=== PATIENT | female | born 1945 | race Caucasian/White ===

== ENCOUNTER 2018-12-26 19:47 | Inpatient (IN) | payer OTHER ==
[~2018-12-26] VITALS: Ht 165.1 cm; Wt 85.7 kg
[2018-12-26 19:47] VITALS: BP 162/40
[~2018-12-26 19:47] MED LIST: ALBU3SOL83 IH; AMLO2.5T PO; ATEN50TA8 PO; BACO TP; BISA-218 RC; D50SYR IVP; DOCU-299 PO; FER325 PO; GLIP10TA3 PO; GLUC-805 FS; HUMSLIDE SUBQ; LACT10CA1 PO; LEVO750T2 PO; LOSA25TA43 PO; METF1000 PO; NORC10 PO; ORE25 PO; SENN-74 PO; TRAZ-343 PO
[2018-12-26] MEDS ORDERED: ATI.5 PO (20:13)
[2018-12-26] MEDS ORDERED: DEXTROSE 50% 50 ML SYR IVP ONE (20:15)
[2018-12-26 21:00] LABS: BASOPHILS # (AUTO) 0.1 K/uL (0.00-0.22); BASOPHILS % (AUTO) 0.4 % (0.0-2.0); EOSINOPHILS # (AUTO) 0.3 K/uL (0-0.4); EOSINOPHILS % (AUTO) 2.3 % (0.0-4.0); HEMOGLOBIN 10.3 g/dL (12.0-16.0); LYMPHOCYTES # (AUTO) 1.6 K/uL (2.5-16.5); MEAN CORPUSCULAR HEMOGLOBIN 30 pg (27-31); MEAN CORPUSCULAR HGB CONC 32 g/dL (33-37); MEAN CORPUSCULAR VOLUME 92.9 fL (80-94); NEUTROPHILS # (AUTO) 11.4 K/uL (1.8-7.7); NEUTROPHILS % (AUTO) 79.3 % (42.2-75.2); PLATELET COUNT (AUTO) 361 K/uL (140-450); RED BLOOD CELL COUNT(AUTO) 3.44 MIL/uL (4.20-5.40); RED CELL DISTRIBUTION WIDTH 17.3 % (11.6-13.7); WHITE BLOOD COUNT (AUTO) 14.3 K/uL (4.8-10.8)
[2018-12-26 21:10] LABS: ANION GAP 7.6 (8-16); CARBON DIOXIDE 34.9 mmol/L (21-32); CREATININE 1.3 mg/dL (0.6-1.3); POTASSIUM 3.5 mmol/L (3.5-5.1)
[2018-12-26 21:15] LABS: CHOL/HDL RATIO 2.5 (1-4.5)
[2018-12-26 21:17] LABS: ALBUMIN 2.9 g/dL (3.4-5.0); TOTAL BILIRUBIN 2.1 mg/dL (0.0-1.0)
[2018-12-26] MEDS ORDERED: FAMOTIDINE 20 MG/2 ML VIAL IV PRN (22:15)
[2018-12-26] MEDS ORDERED: DOCUSATE SODIUM 100 MG GELCAP PO PRN (22:15)
[2018-12-26] MEDS ORDERED: ACETAMINOPHEN 325 MG TAB PO PRN (22:15)
[2018-12-26] MEDS ORDERED: ONDANSETRON 4 MG/2 ML VIAL IM/IVP PRN (22:15)
[2018-12-26] MEDS ORDERED: GLUCAGON 1 MG VIAL IVP PRN (22:25)
[2018-12-26] MEDS ORDERED: DEXTROSE 50% 50 ML SYR IVP PRN (22:25)
[2018-12-26 22:50] LABS: PROTHROMBIN TIME 9.5 secs (10.8-13.4)
[2018-12-26 22:56] LABS: AMYLASE 92 U/L (25-115); FREE T4 (FREE THYROXINE) 1.35 ng/dL (0.76-1.46); LIPASE 224 U/L (73-393); MAGNESIUM 1.4 mg/dL (1.8-2.4); PHOSPHORUS 3.3 mg/dL (2.5-4.9); THYROID STIMULATING HORMONE 3.58 uIU/mL (0.34-3.74)
[2018-12-26] MEDS ORDERED: MAG SULF 2000 MG/WATER PREMIX 50 ML IV SCH (23:55)
[2018-12-27] MEDS ORDERED: ALBUTEROL SULFATE/IPRATROPIU 3 ML SOL IH PRN (00:10)
[2018-12-27] MEDS ORDERED: LOSA25TA43 PO (00:14)
[2018-12-27] MEDS ORDERED: AMLO2.5T PO (00:14)
[2018-12-27] MEDS ORDERED: LORazepam 0.5 MG TAB PO SCH (00:15)
[2018-12-27] MEDS ORDERED: BISACODYL 10 MG RC PRN (00:15)
[2018-12-27] MEDS: DEXT 5% / NACL 0.9% 500 ML IV SCH ×3 (00:16→13:47)
[2018-12-27] MEDS ORDERED: cefTRIAXone 1,000 MG VIAL ONE (02:34)
[2018-12-27 03:50] VITALS: BP 110/60
[2018-12-27] MEDS: BLOOD GLUCOSE MONITORING 1 DEV DEV FS SCH ×6 (04:00→20:00)
[2018-12-27] MEDS ORDERED: MEDICATION REC. PHARMACY CONS. 1 EA MISC MC PRN (04:35)
[2018-12-27] MEDS ORDERED: HYDROcodone/APAP 10/325 MG 1 TAB TAB PO SCH (06:00)
[2018-12-27] MEDS ORDERED: ALBUTEROL SULFATE/IPRATROPIU 3 ML SOL IH SCH (06:00)
[2018-12-27 06:40] LABS: BASOPHILS # (AUTO) 0.1 K/uL (0.00-0.22); BASOPHILS % (AUTO) 0.7 % (0.0-2.0); EOSINOPHILS # (AUTO) 0.3 K/uL (0-0.4); HEMATOCRIT 29.3 % (36-48); HEMOGLOBIN 9.2 g/dL (12.0-16.0); LYMPHOCYTES # (AUTO) 1.2 K/uL (2.5-16.5); LYMPHOCYTES % (AUTO) 10.1 % (20.5-51.1); MEAN CORPUSCULAR HEMOGLOBIN 30 pg (27-31); MEAN CORPUSCULAR HGB CONC 31 g/dL (33-37); MEAN CORPUSCULAR VOLUME 96.1 fL (80-94); MONOCYTES % (AUTO) 8.8 % (1.7-9.3); NEUTROPHILS % (AUTO) 77.4 % (42.2-75.2); PLATELET COUNT (AUTO) 243 K/uL (140-450); RED BLOOD CELL COUNT(AUTO) 3.05 MIL/uL (4.20-5.40); RED CELL DISTRIBUTION WIDTH 18.1 % (11.6-13.7); WHITE BLOOD COUNT (AUTO) 11.6 K/uL (4.8-10.8)
[2018-12-27 07:05] LABS: ANION GAP 8.8 (8-16); CARBON DIOXIDE 27.9 mmol/L (21-32); CREATININE 1.1 mg/dL (0.6-1.3); MAGNESIUM 1.5 mg/dL (1.8-2.4); PHOSPHORUS 3.3 mg/dL (2.5-4.9); POTASSIUM 3.7 mmol/L (3.5-5.1)
[2018-12-27] MEDS ORDERED: BLOOD GLUCOSE MONITORING 1 DEV DEV FS SCH (07:30)
[2018-12-27 08:00] VITALS: BP 140/31
[2018-12-27] MEDS ORDERED: BISACODYL 10 MG SUPP RC PRN (08:15)
[2018-12-27] MEDS: LACTOBACILLUS RHAMNOSUS GG 1 EACH CAP PO SCH (08:46)
[2018-12-27] MEDS: FERROUS SULFATE 325 MG TABEC PO SCH ×2 (08:46→17:24)
[2018-12-27] MEDS: SENNA 8.6 MG TAB PO SCH (08:47)
[2018-12-27] MEDS ORDERED: LOSARTAN POTASSIUM PO SCH (09:00)
[2018-12-27] MEDS: amLODIPine 5 MG TAB PO SCH (09:00)
[2018-12-27] MEDS ORDERED: traZODone 50 MG TAB PO SCH (09:00)
[2018-12-27] MEDS ORDERED: ATENOLOL 50 MG TAB PO SCH (09:00)
[2018-12-27] MEDS ORDERED: NON-FORMULARY ITEM (Lactobacillus Rhamnosus GG (Culturelle) 10 Billion) PO SCH (09:00)
[2018-12-27] MEDS: LOSARTAN 25 MG TAB PO SCH (09:19)
[2018-12-27] MEDS: HYDROCHLOROTHIAZIDE 25 MG TAB PO SCH (09:20)
[2018-12-27] MEDS: MAG SULF 2000 MG/WATER PREMIX 50 ML IV SCH ×2 (11:51→13:50)
[2018-12-27 12:00] VITALS: BP 142/39
[2018-12-27 16:00] VITALS: BP 151/37
[2018-12-27] MEDS: HYDROcodone/APAP 7.5/325 MG 1 TAB PO PRN (16:45)
[2018-12-27 17:31] LABS: BILIRUBIN,URINE NEGATIVE (NEGATIVE); BLOOD, URINE NEGATIVE (NEGATIVE); COLOR,URINE YELLOW (YELLOW); LEUKOCYTE ESTERASE ,URINE 1+ (NEGATIVE); NITRITE, URINE NEGATIVE (NEGATIVE); PH,URINE 5.5 (5.0-9.0); UGLUCOSE NEGATIVE (NEGATIVE)
[2018-12-27 17:32] LABS: APPEARANCE,URINE CLOUDY (CLEAR)
[2018-12-27 17:37] LABS: BARBITURATE, URINE NEG. ng/ml (NEG <=200); BENZODIAZEPINE, URINE NEG. ng/mL (NEG <=200); CANNABINOID, URINE POS. ng/mL (NEG <=50); COCAINE, URINE NEG. ng/mL (NEG <=300); OPIATE, URINE POS. ng/mL (NEG <=2000); PHENCYCLIDINE SCREEN,URINE NEG. ng/mL (NEG <=25)
[2018-12-27 17:43] LABS: RBC,URINE NONE SEEN /HPF (0-5); YEAST,URINE Many /HPF (None Seen)
[2018-12-27 20:00] VITALS: BP 155/43
[2018-12-27] MEDS: ALBUTEROL SULFATE/IPRATROPIU 3 ML SOL IH SCH (20:43)
[2018-12-27] MEDS: traZODone 50 MG TAB PO SCH (21:35)
[2018-12-27] MEDS: INSULIN LISPRO SLIDING SCALE 100 UNITS/ML VIAL SUBQ PRN (22:41)
[2018-12-27] MEDS ORDERED: DEXT 5% / NACL 0.9% 1,000 ML IV SCH (23:20)
[2018-12-28] VITALS: BP 148/51
[2018-12-28] MEDS: LORazepam 0.5 MG TAB PO PRN (00:40)
[2018-12-28 04:00] VITALS: BP 154/45
[2018-12-28] MEDS: INSULIN LISPRO SLIDING SCALE 100 UNITS/ML VIAL SUBQ PRN ×3 (04:56→16:12)
[2018-12-28] MEDS ORDERED: BLOOD GLUCOSE MONITORING 1 DEV DEV FS SCH (05:00)
[2018-12-28 06:41] LABS: BASOPHILS # (AUTO) 0.1 K/uL (0.00-0.22); BASOPHILS % (AUTO) 0.5 % (0.0-2.0); EOSINOPHILS # (AUTO) 0.2 K/uL (0-0.4); EOSINOPHILS % (AUTO) 2.4 % (0.0-4.0); HEMATOCRIT 27.1 % (36-48); HEMOGLOBIN 8.8 g/dL (12.0-16.0); LYMPHOCYTES # (AUTO) 1.3 K/uL (2.5-16.5); LYMPHOCYTES % (AUTO) 13.4 % (20.5-51.1); MEAN CORPUSCULAR HEMOGLOBIN 31 pg (27-31); MEAN CORPUSCULAR HGB CONC 33 g/dL (33-37); MEAN CORPUSCULAR VOLUME 94.5 fL (80-94); MONOCYTES # (AUTO) 0.8 K/uL (0.8-1.0); MONOCYTES % (AUTO) 8.8 % (1.7-9.3); NEUTROPHILS # (AUTO) 7.1 K/uL (1.8-7.7); NEUTROPHILS % (AUTO) 74.9 % (42.2-75.2); PLATELET COUNT (AUTO) 276 K/uL (140-450); RED BLOOD CELL COUNT(AUTO) 2.86 MIL/uL (4.20-5.40); RED CELL DISTRIBUTION WIDTH 17.3 % (11.6-13.7); WHITE BLOOD COUNT (AUTO) 9.4 K/uL (4.8-10.8)
[2018-12-28 06:57] LABS: MAGNESIUM 1.8 mg/dL (1.8-2.4); PHOSPHORUS 2.6 mg/dL (2.5-4.9)
[2018-12-28 06:58] LABS: ANION GAP 7.6 (8-16); CARBON DIOXIDE 28.7 mmol/L (21-32); CHLORIDE 109 mmol/L (98-107); CREATININE 1.2 mg/dL (0.6-1.3); POTASSIUM 3.3 mmol/L (3.5-5.1); SODIUM SERUM 142 mmol/L (136-145); UREA NITROGEN, BLOOD 25 mg/dL (7-18)
[2018-12-28] MEDS: ALBUTEROL SULFATE/IPRATROPIU 3 ML SOL IH SCH ×3 (07:03→20:14)
[2018-12-28 07:12] LABS: GLUCOSE 764 mg/dL (74-106)
[2018-12-28] MEDS ORDERED: INSULIN NPH HUMAN ISOPHANE 100 UNIT/ML VIAL SUBQ ONE (07:50)
[2018-12-28 08:00] VITALS: BP 147/38
[2018-12-28] MEDS: BLOOD GLUCOSE MONITORING 1 DEV DEV FS SCH ×5 (08:20→23:45)
[2018-12-28] MEDS: NACL 0.9% 1,000 ML IV SCH (08:28)
[2018-12-28] MEDS: FERROUS SULFATE 325 MG TABEC PO SCH ×2 (08:29→16:15)
[2018-12-28] MEDS: amLODIPine 5 MG TAB PO SCH ×2 (08:30→08:40)
[2018-12-28] MEDS: HYDROCHLOROTHIAZIDE 25 MG TAB PO SCH ×2 (08:30→08:41)
[2018-12-28] MEDS ORDERED: POTASSIUM CHLORIDE 10 MEQ TABER PO SCH (08:30)
[2018-12-28] MEDS: SENNA 8.6 MG TAB PO SCH (08:30)
[2018-12-28] MEDS: LOSARTAN 25 MG TAB PO SCH (08:31)
[2018-12-28] MEDS: metFORMIN 850 MG TAB PO SCH ×2 (08:31→16:15)
[2018-12-28] MEDS: LACTOBACILLUS RHAMNOSUS GG 1 EACH CAP PO SCH (08:38)
[2018-12-28 08:41] LABS: ANION GAP 8.7 (8-16); CARBON DIOXIDE 30.3 mmol/L (21-32); CHLORIDE 102 mmol/L (98-107); CREATININE 1.2 mg/dL (0.6-1.3); GLUCOSE 240 mg/dL (74-106); SODIUM SERUM 137 mmol/L (136-145); UREA NITROGEN, BLOOD 28 mg/dL (7-18)
[2018-12-28] MEDS ORDERED: POTASSIUM CHLORIDE 20% 40 MEQ/15 ML UDC PO SCH (09:00)
[2018-12-28] MEDS: MORPHINE SULFATE 2 MG/ML SYR IVP PRN (11:41)
[2018-12-28 12:00] VITALS: BP 156/43
[2018-12-28 16:00] VITALS: BP 140/86
[2018-12-28 20:00] VITALS: BP 149/42
[2018-12-28] MEDS: traZODone 50 MG TAB PO SCH (21:20)
[2018-12-29] VITALS: BP 132/52
[2018-12-29] MEDS: NACL 0.9% 1,000 ML IV SCH ×2 (00:30→17:16)
[2018-12-29 04:00] VITALS: BP 158/51
[2018-12-29] MEDS: BLOOD GLUCOSE MONITORING 1 DEV DEV FS SCH ×5 (04:01→20:17)
[2018-12-29] MEDS: MORPHINE SULFATE 2 MG/ML SYR IVP PRN ×3 (04:05→17:15)
[2018-12-29] MEDS: ALBUTEROL SULFATE/IPRATROPIU 3 ML SOL IH SCH ×3 (06:38→19:30)
[2018-12-29 08:00] VITALS: BP 155/43
[2018-12-29 08:09] LABS: MAGNESIUM 1.8 mg/dL (1.8-2.4); PHOSPHORUS 2.7 mg/dL (2.5-4.9)
[2018-12-29 08:11] LABS: ANION GAP 11.6 (8-16); CARBON DIOXIDE 29.8 mmol/L (21-32); CHLORIDE 102 mmol/L (98-107); CREATININE 1.1 mg/dL (0.6-1.3); GLUCOSE 148 mg/dL (74-106); POTASSIUM 4.4 mmol/L (3.5-5.1); SODIUM SERUM 139 mmol/L (136-145); UREA NITROGEN, BLOOD 25 mg/dL (7-18)
[2018-12-29 08:39] LABS: HEMATOCRIT 29.7 % (36-48); HEMOGLOBIN 9.6 g/dL (12.0-16.0); MEAN CORPUSCULAR HEMOGLOBIN 30 pg (27-31); MEAN CORPUSCULAR HGB CONC 32 g/dL (33-37); MEAN CORPUSCULAR VOLUME 93.6 fL (80-94); PLATELET COUNT (AUTO) 302 K/uL (140-450); RED BLOOD CELL COUNT(AUTO) 3.17 MIL/uL (4.20-5.40); RED CELL DISTRIBUTION WIDTH 17.8 % (11.6-13.7); WHITE BLOOD COUNT (AUTO) 12.8 K/uL (4.8-10.8)
[2018-12-29] MEDS: metFORMIN 850 MG TAB PO SCH (08:40)
[2018-12-29] MEDS: HYDROCHLOROTHIAZIDE 25 MG TAB PO SCH (08:40)
[2018-12-29] MEDS: LACTOBACILLUS RHAMNOSUS GG 1 EACH CAP PO SCH (08:42)
[2018-12-29] MEDS: LOSARTAN 25 MG TAB PO SCH (08:43)
[2018-12-29] MEDS: SENNA 8.6 MG TAB PO SCH (08:43)
[2018-12-29] MEDS: FERROUS SULFATE 325 MG TABEC PO SCH ×2 (08:44→17:16)
[2018-12-29] MEDS: amLODIPine 5 MG TAB PO SCH (08:44)
[2018-12-29 09:14] LABS: EOSINOPHILS % (MANUAL) 4 % (0-4); LYMPHOCYTES % (MANUAL) 15 % (20-46); MONOCYTES % (MANUAL) 5 % (5-12)
[2018-12-29] MEDS ORDERED: ATENOLOL 25 MG TAB PO SCH ×2 (10:25→10:48)
[2018-12-29] MEDS: INSULIN LISPRO SLIDING SCALE 100 UNITS/ML VIAL SUBQ PRN ×3 (10:54→20:28)
[2018-12-29] MEDS: LORazepam 0.5 MG TAB PO PRN (10:54)
[2018-12-29] MEDS ORDERED: FLUCONAZOLE 100 MG TAB PO SCH (11:00)
[2018-12-29] MEDS: metFORMIN 500 MG TAB PO SCH (17:12)
[2018-12-29 20:00] VITALS: BP 108/60
[2018-12-29] MEDS: traZODone 50 MG TAB PO SCH (20:21)
[2018-12-29] MEDS: HYDROcodone/APAP 7.5/325 MG 1 TAB PO PRN (20:21)
[2018-12-30] MEDS: MORPHINE SULFATE 2 MG/ML SYR IVP PRN ×2 (00:03→08:56)
[2018-12-30] MEDS: BLOOD GLUCOSE MONITORING 1 DEV DEV FS SCH ×4 (00:04→12:40)
[2018-12-30] MEDS: LORazepam 0.5 MG TAB PO PRN (02:41)
[2018-12-30] MEDS: HYDROcodone/APAP 7.5/325 MG 1 TAB PO PRN (03:24)
[2018-12-30] MEDS: ALBUTEROL SULFATE/IPRATROPIU 3 ML SOL IH SCH ×2 (06:48→13:34)
[2018-12-30 07:26] LABS: BASOPHILS # (AUTO) 0.1 K/uL (0.00-0.22); BASOPHILS % (AUTO) 0.5 % (0.0-2.0); EOSINOPHILS # (AUTO) 0.2 K/uL (0-0.4); EOSINOPHILS % (AUTO) 1.5 % (0.0-4.0); HEMATOCRIT 30.1 % (36-48); HEMOGLOBIN 9.7 g/dL (12.0-16.0); LYMPHOCYTES # (AUTO) 1.7 K/uL (2.5-16.5); LYMPHOCYTES % (AUTO) 13.8 % (20.5-51.1); MEAN CORPUSCULAR HEMOGLOBIN 30 pg (27-31); MEAN CORPUSCULAR HGB CONC 32 g/dL (33-37); MEAN CORPUSCULAR VOLUME 93.2 fL (80-94); MONOCYTES # (AUTO) 1.1 K/uL (0.8-1.0); MONOCYTES % (AUTO) 9.2 % (1.7-9.3); NEUTROPHILS # (AUTO) 9.2 K/uL (1.8-7.7); PLATELET COUNT (AUTO) 281 K/uL (140-450); RED BLOOD CELL COUNT(AUTO) 3.23 MIL/uL (4.20-5.40); RED CELL DISTRIBUTION WIDTH 17.6 % (11.6-13.7); WHITE BLOOD COUNT (AUTO) 12.2 K/uL (4.8-10.8)
[2018-12-30 07:38] LABS: ANION GAP 10.9 (8-16); CARBON DIOXIDE 29.3 mmol/L (21-32); CHLORIDE 102 mmol/L (98-107); CREATININE 1.1 mg/dL (0.6-1.3); GLUCOSE 158 mg/dL (74-106); POTASSIUM 4.2 mmol/L (3.5-5.1); SODIUM SERUM 138 mmol/L (136-145); UREA NITROGEN, BLOOD 21 mg/dL (7-18)
[2018-12-30 07:46] LABS: MAGNESIUM 1.7 mg/dL (1.8-2.4)
[2018-12-30 08:00] VITALS: BP 176/60
[2018-12-30] MEDS: LOSARTAN 25 MG TAB PO SCH (09:00)
[2018-12-30] MEDS ORDERED: ATENOLOL 25 MG TAB PO SCH (09:00)
[2018-12-30] MEDS: FERROUS SULFATE 325 MG TABEC PO SCH (09:00)
[2018-12-30] MEDS: LACTOBACILLUS RHAMNOSUS GG 1 EACH CAP PO SCH (09:00)
[2018-12-30] MEDS: metFORMIN 500 MG TAB PO SCH (09:01)
[2018-12-30] MEDS: amLODIPine 5 MG TAB PO SCH (09:01)
[2018-12-30] MEDS: SENNA 8.6 MG TAB PO SCH (09:01)
[2018-12-30] MEDS: HYDROCHLOROTHIAZIDE 25 MG TAB PO SCH (09:02)
[2018-12-30] MEDS ORDERED: ATEN25TA2 PO (09:17)
[2018-12-30] MEDS ORDERED: MAGNESIUM OXIDE 400 MG TAB PO SCH (09:45)
[2018-12-30] MEDS: NACL 0.9% 1,000 ML IV SCH (09:50)
[2018-12-30] MEDS ORDERED: HYDR-5092 PO (10:26)
[2018-12-30] MEDS ORDERED: XAR10 PO (10:32)
[2018-12-30] MEDS: INSULIN LISPRO SLIDING SCALE 100 UNITS/ML VIAL SUBQ PRN (12:35)
[2018-12-30] MEDS ORDERED: ATI.5 PO (15:09)
== END 2018-12-30 15:15 | disposition home or self-care (01) | DRG 637 ==
LOC: MED 19:47 → MTU 22:23
PROVIDERS: ADMIT General Practice; ATTEND General Practice
DX: E11.649 Type 2 diabetes mellitus with hypoglycemia without coma (principal); G93.41 Metabolic encephalopathy; S42.202A Unspecified fracture of upper end of left humerus, initial encounter for closed fracture; D68.59 Other primary thrombophilia; E44.0 Moderate protein-calorie malnutrition; N17.0 Acute kidney failure with tubular necrosis; G90.9 Disorder of the autonomic nervous system, unspecified; D64.9 Anemia, unspecified; I11.9 Hypertensive heart disease without heart failure; F12.10 Cannabis abuse, uncomplicated; J45.909 Unspecified asthma, uncomplicated; E78.00 Pure hypercholesterolemia, unspecified; E78.5 Hyperlipidemia, unspecified; F41.9 Anxiety disorder, unspecified; D72.829 Elevated white blood cell count, unspecified; G47.00 Insomnia, unspecified; R00.1 Bradycardia, unspecified; E66.9 Obesity, unspecified; E86.0 Dehydration; F19.10 Other psychoactive substance abuse, uncomplicated; Z68.31 Body mass index [BMI] 31.0-31.9, adult; I10 Essential (primary) hypertension; E83.42 Hypomagnesemia; B37.3 Candidiasis of vulva and vagina
CPT/HCPCS: 36415; 36600; 70450; 71045; 73030; 73200; 76700; 80048; 80053; 80305; 81001; 82040; 82140; 82150; 82550; 82553; 82803; 82948; 83605; 83690; 83735; 83880; 84100; 84439; 84443; 84484; 85025; 85379; 85610; 85730; 87040; 87081; 87086; 92610; 93005; 93925; 93970; 94640; 96374; 97110; 97116; 97161-GP; 97530; 99285; G0482; J0696; J1644; J2270; J3475; J7030; J7042; J7060; J7620; Q0092

== ENCOUNTER 2021-12-28 08:21 | Observation (INO) | payer OTHER, MEDICAID ==
[~2021-12-28] VITALS: Ht 167.6 cm; Wt 79.4 kg
[~2021-12-28 08:21] MED LIST changes: -ALBU3SOL83 IH; +ATEN25TA2 PO; -ATEN50TA8 PO; +ATI.5 PO; -BACO TP; -GLIP10TA3 PO; +HYDR-5092 PO; -LACT10CA1 PO; -LEVO750T2 PO; +METF-1274 PO; -METF1000 PO; -NORC10 PO; +XAR10 PO
--- NOTE | 2021-12-28 08:21 | NUR ---
JACOBO GUSTAFSON VIA GURNEY TO BED 09.
--- NOTE | 2021-12-28 08:30 | NUR ---
BIBA FROM HOME FOUND ON GROUND WITH LAC PRESENT ON RIGHT ARM AND LEFT SHOULDER DEFORMITY. GCS 13 WITH BS 276 PER EMS. PT LIVES ALONE. ON MONITOR. IV ESTABLISHED ON LEFT HAND 20G. C/O L SHOULDER PAIN. ERMD AT BEDSIDE WITH US. STRAIGHT CATH PERFORMED. URINE COLLECTED. GOWNED.
[2021-12-28 08:46] VITALS: BP 221/114
[2021-12-28] MEDS ORDERED: GLIP5TER PO (08:52)
[2021-12-28] MEDS ORDERED: DONE5TAB6 PO (08:52)
[2021-12-28] MEDS ORDERED: SERT25TA PO (08:52)
[2021-12-28] MEDS ORDERED: NACL 0.9% 1,000 ML IV ONE (08:55)
--- NOTE | 2021-12-28 08:59 | NUR ---
CALLED AND SPOKE WITH ERIC, HOSPICE STAFF FOR PT. PROVIDED FAX NUMBER SO HE CAN SEND OVER PT MEDICAL HX.
[2021-12-28] MEDS ORDERED: PIPERACILLIN/TAZOBACTAM 3.375 GM in DEXTROSE 5% 50 ML IV ONE (09:00)
[2021-12-28] MEDS ORDERED: PIPERACILLIN/TAZOBACTAM 3.375 GM VIAL IV ONE ×2 (09:02→20:15)
--- NOTE | 2021-12-28 09:16 | NUR ---
PT WENT FOR CT. EKG DONE AT BEDSIDE.BLOOD DRAWN.
[2021-12-28 09:26] LABS: BASOPHILS % (AUTO) 0.2 % (0.0-2.0); EOSINOPHILS % (AUTO) 0.1 % (0.0-4.0); HEMOGLOBIN 14.8 g/dL (12.0-16.0); LYMPHOCYTES # (AUTO) 0.4 K/uL (2.5-16.5); LYMPHOCYTES % (AUTO) 2.5 % (20.5-51.1); MEAN CORPUSCULAR HEMOGLOBIN 29 pg (27-31); MEAN CORPUSCULAR HGB CONC 33 g/dL (33-37); MEAN CORPUSCULAR VOLUME 88.7 fL (80-94); MONOCYTES # (AUTO) 0.4 K/uL (0.8-1.0); MONOCYTES % (AUTO) 2.6 % (1.7-9.3); NEUTROPHILS # (AUTO) 13.7 K/uL (1.8-7.7); NEUTROPHILS % (AUTO) 94.6 % (42.2-75.2); PLATELET COUNT (AUTO) 202 K/uL (140-450); RED BLOOD CELL COUNT(AUTO) 5.08 MIL/uL (4.20-5.40); RED CELL DISTRIBUTION WIDTH 16.2 % (11.6-13.7); WHITE BLOOD COUNT (AUTO) 14.4 K/uL (4.8-10.8)
--- NOTE | 2021-12-28 09:55 | NUR ---
PT WOUND TO R POSTERIOR ARM, ELBOW, R HAND, AND R FOREARM IRRIGATED AND BANDAGED
[2021-12-28] MEDS ORDERED: DULO20EC PO (09:57)
[2021-12-28 10:12] LABS: ALBUMIN 3.4 g/dL (3.4-5.0); ANION GAP 12.9 (8-16); ASPARTATE AMINOTRANSFERASE 22 U/L (15-37); CARBON DIOXIDE 27.1 mmol/L (21-32); CHLORIDE 103 mmol/L (98-107); CREATININE 1.1 mg/dL (0.6-1.3); GLUCOSE 281 mg/dL (74-106); LIPASE 277 U/L (73-393); SODIUM SERUM 139 mmol/L (136-145); TOTAL BILIRUBIN 0.6 mg/dL (0.0-1.0); UREA NITROGEN, BLOOD 18 mg/dL (7-18)
--- NOTE | 2021-12-28 10:32 | NUR ---
Power of property claims manager contact info: [phone]
[2021-12-28 10:54] LABS: APPEARANCE,URINE CLEAR (CLEAR); BILIRUBIN,URINE NEGATIVE (NEGATIVE); BLOOD, URINE TRACE-I (NEGATIVE); COLOR,URINE YELLOW (YELLOW); LEUKOCYTE ESTERASE ,URINE NEGATIVE (NEGATIVE); NITRITE, URINE NEGATIVE (NEGATIVE); UGLUCOSE 2+ (NEGATIVE)
[2021-12-28 11:10] LABS: WBC,URINE 0-5 /HPF (0-5)
--- NOTE | 2021-12-28 11:19 | NUR ---
pt calm and resting. wound dressing applied
[2021-12-28] MEDS ORDERED: LIDOCAINE/EPI 1% 1:100000 20 ML VIAL INJ ONE (12:24)
--- NOTE | 2021-12-28 12:25 | NUR ---
per ermd verbal order, override done for 1% lido with epi. ermd at bedside for suturing
[2021-12-28] MEDS ORDERED: BACITRACIN OINT 500 UNITS/GM PKT TP ONE (12:53)
[2021-12-28] MEDS ORDERED: cefTRIAXone 1,000 MG VIAL ONE (13:15)
[2021-12-28] MEDS ORDERED: MORPHINE SULFATE 2 MG/ML SYR IVP PRN (13:45)
[2021-12-28] MEDS ORDERED: ONDANSETRON 4 MG/2 ML VIAL IVP PRN (13:45)
[2021-12-28] MEDS ORDERED: ACETAMINOPHEN 325 MG TAB PO PRN (13:45)
--- NOTE | 2021-12-28 15:00 | NUR ---
Patient will be admitted to care of DR SAGASTUME. Admited to TELE. Will go to [id number]. Belongings list completed. Report to TRENTON MELCHOR.
[2021-12-28 16:38] VITALS: BP 163/45
[2021-12-28] MEDS: INSULIN LISPRO SLIDING SCALE 100 UNITS/ML VIAL SUBQ PRN (17:57)
--- NOTE | 2021-12-28 19:30 | NUR ---
RECEIVED PT FROM DAY SHIFT NURSE FOR CONTINUITY OF CARE. PT ASLEEP IN BED, AROUSABLE WHEN CALLED BY NAME, PT ON 2L NC, O2 SAT AT 100%.SB 47 ON TELE MONITOR. PT NO COMPLAINS OF PAIN AND SOB RIGHT NOW.IV ON L HAND G 20, SL. R UPPER EXTREMITY DRESSING DRY AND INTACT. ALL PRECAUTIONS IN PLACE. CALL LIGHT WITHIN REACH .WILL CONTINUE TO MONITOR.
[2021-12-28 20:00] VITALS: BP 183/52
--- NOTE | 2021-12-28 20:00 | NUR ---
PAGED DR SAGASTUME BECAUSE BLOOD PRESSURES WAS 183/52. ORDERED HYDRALAZINE 10MG PO Q8H PRN.
[2021-12-28] MEDS ORDERED: hydrALAZINE 10 MG TAB PO PRN (20:10)
--- NOTE | 2021-12-28 20:45 | NUR ---
BLOOD SUGAR WAS 55. ORANGE JUICE GIVEN.PAGED DR SAGASTUME AND ORDERED FOR D50W IVP. AND FLUID NS @ 60.
[2021-12-28] MEDS ORDERED: DEXTROSE 50% 50 ML SYR IVP PRN (20:55)
[2021-12-28] MEDS ORDERED: NACL 0.9% 1,000 ML IV SCH (20:55)
[2021-12-28] MEDS: PIPERACILLIN/TAZOBACTAM 3.375 GM in DEXTROSE 5% 50 ML IV SCH (20:59)
--- NOTE | 2021-12-28 21:00 | NUR ---
SCHEDULED MEDICATION GIVEN. PT TOLERATED WELL. ALL PRECAUTIONS IN PLACE. WILL CONTINUE TO MONITOR.
--- NOTE | 2021-12-28 21:15 | NUR ---
BLOOD SUGAR RECHECK. IT IS NOW 84. WILL CONTINUE TO MONITOR.
[2021-12-28] MEDS: BLOOD GLUCOSE MONITORING 1 DEV DEV FS SCH (21:23)
[2021-12-29] VITALS: BP 143/62
--- NOTE | 2021-12-29 01:43 | NUR ---
PT HAD BOWEL MOVEMENT. PT WAS CLEANED AND CHANGED. PT TOLERATED WELL. WILL CONTINUE TO MONITOR.
--- NOTE | 2021-12-29 02:36 | NUR ---
PT ASLEEP. RESPIRATIONS EQUAL AND UNLABORED, NO SOB NOTED. ALL PRECAUTIONS IN PLACE. CALL LIGHT WITHIN REACH. WILL CONTINUE TO MONITOR.
[2021-12-29 04:00] VITALS: BP 148/67
[2021-12-29] MEDS ORDERED: PIPERACILLIN/TAZOBACTAM 3.375 GM VIAL IV ONE (04:42)
[2021-12-29] MEDS: PIPERACILLIN/TAZOBACTAM 3.375 GM in DEXTROSE 5% 50 ML IV SCH ×2 (05:17→13:30)
--- NOTE | 2021-12-29 05:47 | NUR ---
SCHEDULED MEDICATION GIVEN. PT TOLERATED WELL. ALL PRECAUTIONS IN PLACE. WILL CONTINUE TO MONITOR.
[2021-12-29 06:11] LABS: BASOPHILS # (AUTO) 0.1 K/uL (0.00-0.22); BASOPHILS % (AUTO) 0.7 % (0.0-2.0); EOSINOPHILS # (AUTO) 0.2 K/uL (0-0.4); EOSINOPHILS % (AUTO) 2.6 % (0.0-4.0); HEMATOCRIT 43.3 % (36-48); HEMOGLOBIN 14.2 g/dL (12.0-16.0); LYMPHOCYTES # (AUTO) 1.2 K/uL (2.5-16.5); LYMPHOCYTES % (AUTO) 12.8 % (20.5-51.1); MEAN CORPUSCULAR HEMOGLOBIN 30 pg (27-31); MEAN CORPUSCULAR HGB CONC 33 g/dL (33-37); MEAN CORPUSCULAR VOLUME 89.6 fL (80-94); MONOCYTES # (AUTO) 0.6 K/uL (0.8-1.0); MONOCYTES % (AUTO) 6.3 % (1.7-9.3); NEUTROPHILS # (AUTO) 7.6 K/uL (1.8-7.7); NEUTROPHILS % (AUTO) 77.6 % (42.2-75.2); PLATELET COUNT (AUTO) 213 K/uL (140-450); RED BLOOD CELL COUNT(AUTO) 4.83 MIL/uL (4.20-5.40); RED CELL DISTRIBUTION WIDTH 15.8 % (11.6-13.7); WHITE BLOOD COUNT (AUTO) 9.7 K/uL (4.8-10.8)
[2021-12-29 06:14] LABS: ANION GAP 11.7 (8-16); CARBON DIOXIDE 28.8 mmol/L (21-32); CHLORIDE 106 mmol/L (98-107); CREATININE 0.9 mg/dL (0.6-1.3); GLUCOSE 133 mg/dL (74-106); POTASSIUM 3.5 mmol/L (3.5-5.1); SODIUM SERUM 143 mmol/L (136-145); UREA NITROGEN, BLOOD 14 mg/dL (7-18)
[2021-12-29] MEDS: INSULIN LISPRO SLIDING SCALE 100 UNITS/ML VIAL SUBQ PRN ×2 (06:57→12:58)
[2021-12-29] MEDS: BLOOD GLUCOSE MONITORING 1 DEV DEV FS SCH ×2 (06:57→12:40)
--- NOTE | 2021-12-29 07:30 | NUR ---
RECEIVED BEDSIDE REPORT FROM TRENTON ROCHE RN FOR CONTINUITY OF CARE. PT IN THE BED, AAOX3, ABLE TO MAKE NEEDS KNOWN. ON 2L NC, SR ON THE TELEMONITOR. BOWEL SOUNDS ACTIVE. CONTINENT OF BOWEL AND BLADDER. MILD WEAKNESS TO BUE. WOUNDS AND CLEAN DRY DRESSINGS NOTED TO RUE. LH 20G IV IN PLACE, PATENT, INFUSING NS AT 60 ML/H. ON STANDARD PRECAUTIONS. INITIAL ASSESSMENT COMPLETE, WILL CONT TO CLOSELY MONITOR.
--- NOTE | 2021-12-29 07:36 | NUR ---
PT IS STABLE. ENDORSED TO AM SHIFT NURSE FOR CONTINUITY OF CARE.
[2021-12-29 08:00] VITALS: BP 116/89
--- NOTE | 2021-12-29 09:00 | NUR ---
ASSISTED PT TO RESTROOM. 400 CC URINE AND SBM NOTED. PT TOLERATED WELL. WILL CONT TO MONITOR
--- NOTE | 2021-12-29 10:20 | NUR ---
PTS DPOA CALLED, NARGIS, SPOKE WITH HIM, UPDATED REGARDING PT CONDITION AND PLAN OF CARE. ALL QUESTIONS ANSWERED AT THIS TIME.
--- NOTE | 2021-12-29 10:30 | NUR ---
PHONE CALL FROM TON FROM [facility]. PROVIDED PHONE NUMBER, [phone]. UPDATED REGARDING PT CONDITION.
--- NOTE | 2021-12-29 10:32 | NUR ---
WOUND CARE NOTE: WOUND ASSESSMENT DONE TO THIS 76 Y/O PT. AAX4. ASSIST TO BR, NO C/O PAIN. RIGHT UPPER EXTREMITIES MULTIPLE LACERATIONS WITH SUTURES TO RIGHT INDEX FINGER AND MULTIPLE VERSATEL DRESSING COVERED TO UPPER ARM, ELBOW, FOREARM AND DORSAL HAND, MOIST, NO S/S OF INFECTION, SCOTT WOUND SKIN THIN WITH ECCHYMOSIS, NO SWELLING, PAIN 2/10. PT IS ANXIOUS, ALL NEEDS ASSISTED BUT STILL CALLING FOR HELP. FALL SAFETY PRECAUTION IN PLACE, CALL LIGHT IN REACH. POC DISCUSSED WITH PRIMARY RN. RECOMMENDATIONS: -CLEANSE RIGHT UPPER EXTREMITY MULTIPLE LACERATIONS WITH NS. PAT DRY APPLY OIL EMULSION DRESSING TO WOUNDS AND COVER WITH DRY DRESSING, WRAP WITH KERLIX ROLL SECURE WITH TAPE 3XWEEK ON -W-F AND PRN IF SOILING -POSITIONING: TURN AND REPOSITION PATIENT Q 2H -RE-EVALUATING AND MANAGING INCONTINENCE MONITOR SKIN CONDITION DURING POSITION CHANGE FREQUENT SCOTT-CARE AND PROVIDE BARRIER CREAMS PRN IF SOILING KEEP SKIN DRY AND PROTECT FROM FRICTION -MANAGE FRICTION/SHEAR/MOBILITY KEEP HOB AT THE LOWEST LEVEL OF ELEVATION NO MORE THAN 30 DEGREE UNLESS OTHERWISE CONTRAINDICATED PROTECT HEELS, ELBOWS BONY PROMINENCES WITH SKIN BERRIES OR FOAM DRESSING IF EXPOSED TO FRICTION OFFLOAD BILATERAL HEELS BY PLACING PILLOWS UNDER CALVES AT ALL TIMES, UNLESS OTHERWISE CONTRAINDICATED -PRESSURE REDISTRIBUTION SURFACE THERAPY NAOMY ISOFLEX MATTRESS -NUTRITION: PLEASE FOLLOW RD RECOMMENDATIONS AND OFFER NUTRITION SUPPLEMENTS IF ORDERED
--- NOTE | 2021-12-29 10:42 | NUR ---
PATIENT HAS BEEN SCREENED AND CATEGORIZED MODERATE NUTRITION RISK. PATIENT WILL BE SEEN WITHIN 3-5 DAYS OF ADMISSION. CONSULT RECEIVED NOT APPLICABLE [address]SE[address]
[2021-12-29 12:00] VITALS: BP 128/88
--- NOTE | 2021-12-29 12:00 | NUR ---
PT RESTING, NO S/S ACUTE DISTRESS.
--- NOTE | 2021-12-29 12:54 | NUR ---
DC [age] YRS OLD FEMALE PATIENT WAS ADMITTED FROM HOME WITH A DX OF FAILURE TO THRIVE. S/P FLL AT HOME. PATIENT HAS A HX OF DM, HTN, SEIZURE ,CVA, ASTHMA AND HLD. CXR NO DEFINITE EVIDENCE OF ACUTE CARDIOPULMONARY DISEASE. RAPID COVID TEST NEGATIVE. SHOULDER X-RAY CHRONIC APPEARING NONUNION DEFORMITY OF THE HUMERAL NECK. HEAD CT NO ACUTE INTRACRANIAL HEMORRHAGE. ADMINISTERED IVF, IV ABX ZOSYN AND CONTINUE HOME MEDS. PATIENT IS WITH [facility]. PHONE NUMBER [phone] DC PLAN TO GO HOME WITH HOSPICE CM TO FOLLOW
[2021-12-29] MEDS ORDERED: NON ADHERENT DRESSING TP SCH (13:00)
--- NOTE | 2021-12-29 14:00 | NUR ---
PT WATCHING TV, NO S/S ACUTE DISTRESS.
[2021-12-29 15:13] VITALS: BP 128/88
--- NOTE | 2021-12-29 15:45 | NUR ---
PHONE CALL FROM NARGIS Jaimes, PT CYTOGENETIC TECHNICIAN. UPDATED REGARDING DISCHARGE PLAN WITH [facility] PICKUP AND TRANSPORT PT TO HOME. PT ANXIOUS ABOUT GOING HOME. PROVIDED DISCHARGE TEACHING. PT SPOKE WITH NARGIS VIA SPEAKER PHONE WITH MY PAGER. PT EXPRESSED RELIEF AFTER SPEAKING WITH NARGIS.
[2021-12-29 16:00] VITALS: BP 114/72
--- NOTE | 2021-12-29 16:00 | NUR ---
FAXED REQUESTED DOCUMENTS TO TON FROM [facility]. TON CONFIRMED HE RECEIVED VIA TELEPHONE.
--- NOTE | 2021-12-29 16:30 | NUR ---
WALKED PT TO LOBBY VIA WHEELCHAIR, PICKED UP BY [employer]. PT IV REMOVED. AND ID BAND REMOVED. PT STABLE, NO S/S DISTRESS. SENT WITH BELONGINGS.
== END 2021-12-29 16:49 | disposition home or self-care (01) ==
LOC: MED 08:21 → INTOOBSV 13:41 → MTU 13:41
PROVIDERS: ADMIT Family Medicine; ATTEND Family Medicine
DX: S41.111A Laceration without foreign body of right upper arm, initial encounter (principal); Z20.822 Contact with and (suspected) exposure to COVID-19; S61.412A Laceration without foreign body of left hand, initial encounter; S61.411A Laceration without foreign body of right hand, initial encounter; E86.0 Dehydration; D72.829 Elevated white blood cell count, unspecified; E11.9 Type 2 diabetes mellitus without complications; I10 Essential (primary) hypertension; J45.909 Unspecified asthma, uncomplicated; E78.00 Pure hypercholesterolemia, unspecified; R56.9 Unspecified convulsions; R82.71 Bacteriuria; Z86.73 Personal history of transient ischemic attack (TIA), and cerebral infarction without residual deficits; Z87.891 Personal history of nicotine dependence; Z23 Encounter for immunization; Z79.899 Other long term (current) drug therapy; W01.0XXA Fall on same level from slipping, tripping and stumbling without subsequent striking against object, initial encounter; Y93.89 Activity, other specified; Y92.000 Kitchen of unspecified non-institutional (private) residence as the place of occurrence of the external cause
CPT/HCPCS: 36415; 70450; 71045; 72125; 73030; 74176; 80048; 80053; 81001; 82550; 82948; 83605; 83690; 84484; 85025; 87040; 87081; 87086; 87426; 90471; 90715; 93005; 96365; 96366; 96367; 97163; 97530; 99285; G0378; J0696; J1815; J2543; J2001; J7060